=== PATIENT | female | born 2000 | race Two or more races ===

== ENCOUNTER 2025-01-13 07:26 | Emergency (ER) | payer OTHER ==
[~2025-01-13] VITALS: Ht 160 cm; Wt 68.0 kg
[2025-01-13 09:58] LABS: URINE APPEARANCE Cloudy; URINE BILIRRUBIN Negative (NEGATIVE); URINE BLOOD Trace; URINE COLOR Yellow; URINE GLUCOSE Negative (NEGATIVE); URINE KETONE Negative (NEGATIVE); URINE LEUKOCYTE Large; URINE NITRATE Negative; URINE PROTEIN Negative (NEGATIVE); URINE UROBILINOGEN 0.2 E.U./dl
[2025-01-13 10:00] LABS: BASO % 0.4 % (0.1-1.2); EOS # 0.23 (0.04-0.54); EOS % 1.9 % (0.7-7.0); HEMATOCRIT 40.2 % (34.1-44.9); LYMPH # 1.81 (1.18-3.74); LYMPH % 14.6 % (19.3-53.1); MONO # 0.68 (0.24-0.82); MONO % 5.5 % (4.7-12.5); NEUT # 9.55 (1.56-6.13); NEUT % 77.3 % (34.0-71.1); PLATELET COUNT 351 K/uL (163-369); RED BLOOD COUNT 4.82 M/uL (3.93-5.22); RED CELL DISTRIBUTION WIDTH 14.4 % (11.6-14.4)
[2025-01-13 10:02] LABS: URINE BACTERIA 1411.1 uL (0.0-1933); URINE EPITHELIAL CELLS 38.1 uL (0.0-38.8); URINE WBC 821.8 uL (0.0-23.2)
[2025-01-13 10:06] LABS: URINE RBC 0.5 uL (0.0-20.8)
[2025-01-13 10:19] LABS: ALBUMIN 3.6 gm/dL (3.4-5.0); BILIRUBIN TOTAL 0.95 mg/dL (0.3-1.2); CALCIUM 9.2 mg/dL (8.5-10.1); CREATININE SERUM 0.88 mg/dL (0.55-1.02); GFR 79.63; GLOBULINA 4.6 G/DL (2.4-3.5); POTASSIUM 3.91 mEq/L (3.5-5.1); TOTAL PROTEIN 8.2 gm/dL (6.4-8.2)
[2025-01-13] MEDS ORDERED: CEFTRIAXONE SODIUM 1,000 MG VIAL IM ONE (10:45)
[2025-01-13] MEDS ORDERED: CEFTRIAXONE SODIUM 1,000 MG VIAL ONE (11:03)
[2025-01-13] MEDS ORDERED: LIDOCAINE HCL 1% 10ML VIAL ONE (11:05)
[2025-01-13] MEDS ORDERED: MACROBID 100 M100 MG PO (11:16)
[2025-01-13] MEDS ORDERED: PYRIDIUM200 MG PO (11:17)
== END 2025-01-13 11:25 | disposition home or self-care (01) ==
LOC: ER 07:52
PROVIDERS: Preventive Medicine Public Health & General Preventive Medicine
DX: N39.0 Urinary tract infection, site not specified (principal)